=== PATIENT | male | born 1970 | race Caucasian/White ===

== ENCOUNTER 2018-07-22 08:23 | Observation (INO) ==
[2018-07-22] MEDS ORDERED: ONDANSETRON 4 MG/2 ML VIAL IV STA (09:23)
[2018-07-22] MEDS ORDERED: ASPIRIN 325 MG TABLET PO STA (09:23)
[2018-07-22] MEDS ORDERED: NITROGLYCERIN SL 0.4 MG TABLET SL PRN (09:23)
[2018-07-22 09:48] LABS: Basophils # 0.1 10*3/uL (0.0-0.2); Basophils % 0.5 % (0.0-0.8); Eosinophils # 0.1 10*3/uL (0.0-0.87); Eosinophils % 0.5 % (0.00-10.9); Hematocrit 43.1 VOL% (42.0-52.0); Hemoglobin 14.3 GM/DL (14.0-18.0); Immature Granulocytes % 0.2 %; Immature Granulocytes Absolute 0.03 #; Lymphocytes # 1.3 10*3/uL (1.4-4.0); Lymphocytes % 9.2 % (21.2-54.2); Mean Corpuscular HGB Conc 33.2 GM/DL (32-36); Mean Corpuscular Hemoglobin 30 PG (27-34); Mean Corpuscular Volume 90.7 FL (87-102); Mean Platelet Volume 10.4 FL (9.6-12.0); Monocytes # 1.6 10*3/uL (0.11-0.8); Monocytes % 11.5 % (1.7-12.7); Neutrophils # 11.1 10*3/uL (1.4-7.4); Neutrophils % 78.1 % (38.7-73.9); Platelet Count 251 T/CUMM (130-400); Red Blood Count 4.75 MC/CUMM (3.8-5.5); Red Cell Distribution Width 12.3 % (9.3-17.3); White Blood Count 14.3 T/CUMM (4-12)
[2018-07-22 09:58] LABS: PT Patient Result 10.7 SECS
[2018-07-22 10:08] LABS: Albumin 3.7 G/DL (3.4-5.0); Bilirubin,Total 0.7 MG/DL (0.2-1.0); Calcium 8.7 MG/DL (8.5-10.1); Osmolality,Calculated 270.2 MOS/KG (273-304); Potassium 4.1 MMOL/L (3.5-5.1); Total Protein 7.1 G/DL (6.4-8.3)
[2018-07-22] MEDS ORDERED: MORPHINE 4 MG/1 ML VIAL IV PRN (10:23)
[2018-07-22] MEDS ORDERED: ZALEPLON 5 MG CAPSULE PO PRN (10:23)
[2018-07-22] MEDS ORDERED: ONDANSETRON 4 MG/2 ML VIAL IV PRN (10:23)
[2018-07-22] MEDS ORDERED: MAGNESIUM SULF RIDER 2 GM in PREMIX 1 EACH IV ONE (12:00)
[2018-07-22] MEDS ORDERED: ENOXAPARIN 40 MG/0.4 ML SYRINGE SUBCUT SCH (21:00)
[2018-07-22] MEDS: FUROSEMIDE 40 MG TABLET PO SCH (21:23)
[2018-07-22] MEDS: DOCUSATE SODIUM 100 MG CAPSULE PO SCH (21:24)
[2018-07-22] MEDS: CARVEDILOL 12.5 MG TABLET PO SCH (21:24)
[2018-07-23 05:14] LABS: Basophils # 0.1 10*3/uL (0.0-0.2); Basophils % 0.7 % (0.0-0.8); Eosinophils # 0.3 10*3/uL (0.0-0.87); Eosinophils % 3.7 % (0.00-10.9); Hematocrit 45.2 VOL% (42.0-52.0); Hemoglobin 14.4 GM/DL (14.0-18.0); Immature Granulocytes % 0.3 %; Immature Granulocytes Absolute 0.02 #; Mean Corpuscular HGB Conc 31.9 GM/DL (32-36); Mean Corpuscular Hemoglobin 29 PG (27-34); Mean Corpuscular Volume 92.4 FL (87-102); Mean Platelet Volume 10.8 FL (9.6-12.0); Monocytes # 1.2 10*3/uL (0.11-0.8); Monocytes % 15.8 % (1.7-12.7); Neutrophils % 39.5 % (38.7-73.9); Platelet Count 249 T/CUMM (130-400); Red Blood Count 4.89 MC/CUMM (3.8-5.5); Red Cell Distribution Width 12.4 % (9.3-17.3); White Blood Count 7.5 T/CUMM (4-12)
[2018-07-23 05:48] LABS: Atypical Lymphocytes Few; Eosinophils 3 % (0-10); Hypochromasia 1+; Lymphocytes 36 % (20-55); Microcytosis Slight; Segmented Neutrophils 44 % (50-85); Total Cells Counted 100
[2018-07-23 05:49] LABS: Ovalocytes Slight
[2018-07-23 06:01] LABS: Alanine Aminotransferase 22 U/L (16-61); Alkaline Phosphatase 106 U/L (45-117); Aspartate Amino Transferase 15 U/L (0-37); Blood Urea Nitrogen 13 MG/DL (7-18); Calcium 8.5 MG/DL (8.5-10.1); Cholesterol 104 MG/DL (50-200); Glucose 105 MG/DL (74-106); HDL Cholesterol 46 MG/DL (40-60); Osmolality,Calculated 276.5 MOS/KG (273-304); Potassium 3.9 MMOL/L (3.5-5.1); Risk Ratio 2.26; Sodium 139 MMOL/L (136-145); Thyroid Stimulating Hormone < 0.005 uIU/ml (0.358-3.74); Total Protein 7.4 G/DL (6.4-8.3); Triglycerides 81 MG/DL (2-150); VLDL CHOLESTEROL 16.2 MG/DL
[2018-07-23 07:57] VITALS: BP 155/92
[2018-07-23] MEDS: FUROSEMIDE 40 MG TABLET PO SCH (08:28)
[2018-07-23] MEDS: DOCUSATE SODIUM 100 MG CAPSULE PO SCH (08:28)
[2018-07-23] MEDS: CARVEDILOL 12.5 MG TABLET PO SCH (08:28)
[2018-07-23] MEDS ORDERED: PANTOPRAZOLE 40 MG TABLET PO SCH (09:00)
[2018-07-23] MEDS ORDERED: SPIRONOLACTONE 25 MG TABLET PO SCH (09:00)
[2018-07-23] MEDS ORDERED: POTASSIUM CHLORIDE 20 MEQ TABLET PO SCH (09:00)
[2018-07-23] MEDS ORDERED: LISINOPRIL 20 MG TABLET PO SCH (09:00)
[2018-07-23] MEDS ORDERED: ASPIRIN CHEW 81 MG TABLET PO SCH (09:00)
== END 2018-07-23 11:00 | disposition home or self-care (01) ==
LOC: EDBD → EDUNIT# → N.EDINP 08:23 → N.ED 08:23 → N.EDINP 12:00 → N.TELEN 12:09
PROVIDERS: ADMIT Family Medicine; ATTEND Family Medicine

== ENCOUNTER 2019-02-02 08:38 | Inpatient (IN) ==
[2019-02-02] MEDS ORDERED: ALBUTEROL/IPRATROPIUM 3 ML NEB RESP TX STA (09:02)
[2019-02-02] MEDS ORDERED: NITROGLYCERIN 2% OINT 1 INCH/GM PACK TOP STA (09:02)
[2019-02-02 09:15] LABS: Basophils # 0.2 10*3/uL (0.0-0.2); Basophils % 1.6 % (0.0-0.8); Eosinophils # 0.4 10*3/uL (0.0-0.87); Eosinophils % 3.8 % (0.00-10.9); Hematocrit 45.1 VOL% (42.0-52.0); Hemoglobin 14.5 GM/DL (14.0-18.0); Immature Granulocytes % 0.5 %; Immature Granulocytes Absolute 0.05 #; Lymphocytes # 1.9 10*3/uL (1.4-4.0); Mean Corpuscular HGB Conc 32.2 GM/DL (32-36); Mean Corpuscular Volume 94.9 FL (87-102); Mean Platelet Volume 9.9 FL (9.6-12.0); Neutrophils % 66.1 % (38.7-73.9); Platelet Count 301 T/CUMM (130-400); Red Blood Count 4.75 MC/CUMM (3.8-5.5); Red Cell Distribution Width 14.4 % (9.3-17.3); White Blood Count 9.9 T/CUMM (4-12)
[2019-02-02 09:38] LABS: Albumin 3.1 G/DL (3.4-5.0); Bilirubin,Total 0.7 MG/DL (0.2-1.0); Calcium 8.7 MG/DL (8.5-10.1); Osmolality,Calculated 274.7 MOS/KG (273-304); Total Protein 7.3 G/DL (6.4-8.3)
[2019-02-02] MEDS ORDERED: ASPIRIN 325 MG TABLET PO STA (09:57)
[2019-02-02] MEDS ORDERED: LEVOFLOXACIN INJ 750 MG in PREMIX 1 EACH IV STA (09:57)
[2019-02-02] MEDS ORDERED: FUROSEMIDE 40 MG/4 ML VIAL IV STA (10:05)
[2019-02-02] MEDS: ENOXAPARIN 80 MG/0.8 ML SYRINGE SUBCUT SCH ×2 (10:06→21:46)
[2019-02-02] MEDS ORDERED: NICOTINE 21 MG/24 HR PATCH TRANSDERM PRN (10:57)
[2019-02-02] MEDS ORDERED: ACETAMINOPHEN 325 MG TABLET PO PRN (10:57)
[2019-02-02] MEDS ORDERED: ONDANSETRON 4 MG/2 ML VIAL IV PRN (10:57)
[2019-02-02] MEDS ORDERED: DOCUSATE SODIUM 100 MG CAPSULE PO PRN (10:57)
[2019-02-02 12:22] LABS: Risk Ratio 3.08; Thyroid Stimulating Hormone 0.021 uIU/ml (0.358-3.74); VLDL CHOLESTEROL 13.2 MG/DL
[2019-02-02 13:32] LABS: Barbiturates Screen,Urine Negative (Negative); Benzodiazepines Screen,Urine Negative (Negative); Cannabinoid Screen,Urine Negative (Negative); Opiate Screen,Urine Negative (Negative); Phencyclidine Screen,Urine Negative (Negative)
[2019-02-02] MEDS ORDERED: methIMAzole 5 MG TABLET PO SCH (15:00)
[2019-02-02] MEDS: CARVEDILOL 6.25 MG TABLET PO SCH ×2 (15:20→21:45)
[2019-02-02] MEDS: LISINOPRIL 20 MG TABLET PO SCH (15:20)
[2019-02-02] MEDS: FUROSEMIDE 40 MG/4 ML VIAL IV SCH (15:21)
[2019-02-02] MEDS: methIMAzole 10 MG TABLET PO SCH (21:45)
[2019-02-02] MEDS ORDERED: diphenhydrAMINE CAP 25 MG CAPSULE PO ONE (22:37)
[2019-02-03 05:06] LABS: Basophils # 0.1 10*3/uL (0.0-0.2); Basophils % 1.4 % (0.0-0.8); Eosinophils # 0.6 10*3/uL (0.0-0.87); Eosinophils % 6.3 % (0.00-10.9); Hematocrit 44.4 VOL% (42.0-52.0); Hemoglobin 14.9 GM/DL (14.0-18.0); Immature Granulocytes % 0.3 %; Immature Granulocytes Absolute 0.03 #; Lymphocytes # 2.3 10*3/uL (1.4-4.0); Lymphocytes % 26.4 % (21.2-54.2); Mean Corpuscular HGB Conc 33.6 GM/DL (32-36); Mean Corpuscular Volume 94.1 FL (87-102); Mean Platelet Volume 10.5 FL (9.6-12.0); Neutrophils % 56.6 % (38.7-73.9); Platelet Count 342 T/CUMM (130-400); Red Blood Count 4.72 MC/CUMM (3.8-5.5); Red Cell Distribution Width 14.3 % (9.3-17.3); White Blood Count 8.9 T/CUMM (4-12)
[2019-02-03 05:29] LABS: Albumin 2.8 G/DL (3.4-5.0); Bilirubin,Total 0.7 MG/DL (0.2-1.0); Calcium 8.5 MG/DL (8.5-10.1); Osmolality,Calculated 278.7 MOS/KG (273-304); Total Protein 7.1 G/DL (6.4-8.3)
[2019-02-03] MEDS: methIMAzole 10 MG TABLET PO SCH ×3 (09:06→21:29)
[2019-02-03] MEDS: SPIRONOLACTONE 25 MG TABLET PO SCH (09:06)
[2019-02-03] MEDS: PANTOPRAZOLE 40 MG TABLET PO SCH (09:07)
[2019-02-03] MEDS: APIXABAN 5 MG TABLET PO SCH ×2 (09:07→21:29)
[2019-02-03] MEDS: CARVEDILOL 6.25 MG TABLET PO SCH (09:07)
[2019-02-03] MEDS: ASPIRIN CHEW 81 MG TABLET PO SCH (09:07)
[2019-02-03] MEDS: LISINOPRIL 20 MG TABLET PO SCH (09:07)
[2019-02-03] MEDS: LEVOFLOXACIN INJ 750 MG in PREMIX 1 EACH IV SCH (09:08)
[2019-02-03] MEDS: FUROSEMIDE 40 MG/4 ML VIAL IV SCH (09:08)
[2019-02-03] MEDS ORDERED: CARVEDILOL 6.25 MG TABLET PO ONE (09:46)
[2019-02-03] MEDS: FUROSEMIDE 40 MG TABLET PO SCH (16:13)
[2019-02-03] MEDS: CARVEDILOL 12.5 MG TABLET PO SCH (21:29)
[2019-02-04 05:02] LABS: Basophils # 0.1 10*3/uL (0.0-0.2); Basophils % 1.3 % (0.0-0.8); Eosinophils # 0.5 10*3/uL (0.0-0.87); Eosinophils % 5.1 % (0.00-10.9); Hematocrit 45.1 VOL% (42.0-52.0); Hemoglobin 14.4 GM/DL (14.0-18.0); Immature Granulocytes % 0.2 %; Immature Granulocytes Absolute 0.02 #; Lymphocytes # 2.1 10*3/uL (1.4-4.0); Lymphocytes % 20.9 % (21.2-54.2); Mean Corpuscular HGB Conc 31.9 GM/DL (32-36); Mean Corpuscular Volume 94.5 FL (87-102); Mean Platelet Volume 10.4 FL (9.6-12.0); Monocytes % 7.2 % (1.7-12.7); Neutrophils % 65.3 % (38.7-73.9); Platelet Count 345 T/CUMM (130-400); Red Blood Count 4.77 MC/CUMM (3.8-5.5); Red Cell Distribution Width 14.4 % (9.3-17.3); White Blood Count 9.9 T/CUMM (4-12)
[2019-02-04 05:43] LABS: Calcium 8.6 MG/DL (8.5-10.1); Osmolality,Calculated 279.7 MOS/KG (273-304)
[2019-02-04 06:36] LABS: Albumin 3.1 G/DL (3.4-5.0); Bilirubin,Total 0.6 MG/DL (0.2-1.0); Calcium 8.6 MG/DL (8.5-10.1); Osmolality,Calculated 277.8 MOS/KG (273-304); Total Protein 7.4 G/DL (6.4-8.3)
[2019-02-04] MEDS ORDERED: FUROSEMIDE 40 MG TABLET PO SCH (09:00)
[2019-02-04] MEDS: FUROSEMIDE 40 MG TABLET PO SCH (09:03)
[2019-02-04] MEDS: SPIRONOLACTONE 25 MG TABLET PO SCH (09:03)
[2019-02-04] MEDS: LISINOPRIL 20 MG TABLET PO SCH (09:03)
[2019-02-04] MEDS: CARVEDILOL 12.5 MG TABLET PO SCH (09:04)
[2019-02-04] MEDS: methIMAzole 10 MG TABLET PO SCH (09:04)
[2019-02-04] MEDS: PANTOPRAZOLE 40 MG TABLET PO SCH (09:04)
[2019-02-04] MEDS: ASPIRIN CHEW 81 MG TABLET PO SCH (09:04)
[2019-02-04] MEDS: APIXABAN 5 MG TABLET PO SCH (09:04)
[2019-02-04] MEDS: LEVOFLOXACIN INJ 750 MG in PREMIX 1 EACH IV SCH (09:05)
[2019-02-04 09:51] VITALS: BP 155/99
[2019-02-05 11:35] LABS: Thyroglob. AB > 500 IU/mL (<4.0)
== END 2019-02-04 11:00 | disposition home or self-care (01) | DRG 291 ==
LOC: N.ED 08:38 → SUATTDRO 10:57 → N.EDINP 10:57 → N.5E 12:04
PROVIDERS: ADMIT Hospitalist; ATTEND Internal Medicine